=== PATIENT | male | born 1975 | race African-American/Black ===

== ENCOUNTER 2022-09-10 20:33 | Emergency (ER) | payer OTHER ==
[~2022-09-10] VITALS: Ht 182.9 cm; Wt 136.6 kg
[2022-09-10] MEDS ORDERED: BLOOD SUGAR DIAGNOSTIC STRIP TEST ONE (22:00)
[2022-09-10] MEDS ORDERED: SODIUM CHLORIDE 0.9% IV ONE (22:00)
[2022-09-10 22:37] LABS: CLARITY URINE CLEAR (CLEAR); COLOR URINE YELLOW (YELLOW); KETONES URINE 2+ (NEGATIVE); LEUKOCYTE ESTERASE URINE NEGATIVE (NEGATIVE); NITRITE URINE NEGATIVE (NEGATIVE); OCCULT BLOOD URINE 2+ (NEGATIVE); PH URINE 5.5 (4.5-8.0); PROTEIN URINE 3+ (NEGATIVE); SPECIFIC GRAVITY URINE 1.032 (1.005-1.030); UROBILINOGEN URINE 0.2 E.U./dL (0.2-1.0)
[2022-09-10 22:41] LABS: BASOPHILS % 0.2 % (0.0-2.0); EOSINOPHILS % 0.5 % (0.0-5.0); HEMATOCRIT. 49.8 % (42.0-52.0); HEMOGLOBIN. 16.2 g/dL (14.0-18.0); LYMPHOCYTES % 9.3 % (20.0-50.0); MEAN CORPUSCULAR HEMOGLOBIN 28.5 pg (28.0-32.0); MEAN CORPUSCULAR VOLUME 87.6 fL (80.0-94.0); MONOCYTES % 9.9 % (2.0-8.0); NEUTROPHILS % 80.1 % (40.0-76.0); PLATELET 154 x1000/uL (130-400); RED BLOOD CELL COUNT 5.68 mill/uL (4.7-6.1); RED CELL DISTRIBUTION WIDTH 14.6 % (11.6-14.6)
[2022-09-10] MEDS ORDERED: INSULIN REGULAR (HUMULIN R) 300UNITS/3ML VIAL IV NR (22:45)
[2022-09-10 22:52] LABS: PROTHROMBIN TIME 10.4 sec (9.6-11.0)
[2022-09-10 22:54] LABS: CHLORIDE 100 mEq/L (98-107)
[2022-09-10 23:03] LABS: BETA HYDROXYBUTYRATE 3.6 mMol/L (0.0-0.3)
[2022-09-10] MEDS ORDERED: INSULIN REGULAR (HUMULIN R) 300UNITS/3ML VIAL IV ONE (23:45)
[2022-09-11] MEDS ORDERED: INSULIN REGULAR (HUMULIN R) 300UNITS/3ML VIAL IV ONE ×3 (02:30→05:15)
[2022-09-11] MEDS ORDERED: SODIUM CHLORIDE 0.9% 1,000 ML IV ONE (05:00)
[2022-09-11] MEDS ORDERED: METFORMIN HCL 500MG TABLET PO ONE (06:15)
[2022-09-11] MEDS ORDERED: METF-414 MT (06:39)
[2022-09-11 07:06] VITALS: BP 136/100
== END 2022-09-11 07:08 | disposition home or self-care (01) ==
LOC: ER 20:33
DX: E11.65 Type 2 diabetes mellitus with hyperglycemia (principal); E86.0 Dehydration; E78.00 Pure hypercholesterolemia, unspecified; I10 Essential (primary) hypertension
CPT/HCPCS: 36415; 80053; 81003; 82010; 82962; 83690; 85025; 85610; 93005; 96361; 96374; 96376; 99291; J1815; J7030